=== PATIENT | female | born 1980 | race Caucasian/White ===

== ENCOUNTER 2022-10-25 15:04 | Emergency (ER) | payer OTHER, SELFPAY ==
[2022-10-25 15:12] VITALS: BP 166/126; PULSE 111; RESP 16; TEMP 36.9; O2SAT 100; BMI 27.4
--- NOTE | 2022-10-25 15:21 | XR_ITS ---
[address] [address] Patient Name: JACOB MAE MRN: [id number] date: 1980 Sex: F Assigned Patient Location: ER Current Patient Location: ER Accession/Order Number: [id number] Exam Date: 10/25/2022 15:35 Report Date: 10/25/2022 16:20 At the request of: MARIEL ANTONIO Procedure: XR sacrum coccyx min 2V EXAM: XR sacrum coccyx min 2V HISTORY: fall, sacrum/coccyx pain COMPARISON: None. TECHNIQUE: 3 views of the sacrum and coccyx FINDINGS: There is no acute fracture or dislocation. Mild spondylosis. Pressure: No acute process. Electronically authenticated by: CHRISTOPH OZUNA Date: 10/25/2022 16:20
--- NOTE | 2022-10-25 15:21 | XR_ITS ---
The [address] [address] Patient Name: JACOB MAE MRN: [id number] date: 1980 Sex: F Assigned Patient Location: ER Current Patient Location: ER Accession/Order Number: [id number] Exam Date: 10/25/2022 15:35 Report Date: 10/25/2022 16:15 At the request of: MARIEL ANTONIO Procedure: XR foot LT min 3V EXAM: XR foot LT min 3V HISTORY: left foot injury COMPARISON: None. TECHNIQUE: 3 views of the left foot FINDINGS: No acute fracture or dislocation. There is a small heel spur. The soft tissue is unremarkable. IMPRESSION: No acute process. Electronically authenticated by: CHRISTOPH OZUNA Date: 10/25/2022 16:15
--- NOTE | 2022-10-25 15:22 | ED_ITS ---
HPI - Fall General Chief Complaint: Fall Stated Complaint: FALL FROM ROOF Time Seen by Provider: 10/25/22 15:12 Source: patient Mode of arrival: Wheelchair Limitations: no limitations History of Present Illness HPI Narrative: Yesterday around 8pm, the patient was standing on a ladder, cleaning the gutters of her roof. She felt the ladders start to slide under her and she fell to the wooden deck below. She is uncertain how exactly she landed but did not lose consciousness. She initially felt pain in the tailbone and also had pain in the left foot. She said that despite taking ibuprofen the pain in the left foot has increased and she is having difficulty bearing weight on his left foot. She also admits to some achiness along the scalp, the lateral neck on the right and the lateral right shoulder. She denied any chest pain, abdominal pain, pain in the hips, thighs, knees, lower legs or ankles. Related Data Home Medications Medication Instructions Recorded Confirmed dextroamphetamine-amphetamine 10 10/25/22 mg tablet escitalopram oxalate 10 mg tablet mg 10/25/22 lisinopril 20 tab 10/25/22 mg-hydrochlorothiazide 12.5 mg tablet Previous Rx's Medication Instructions Recorded nabumetone 1,000 mg tablet 1,000 mg PO BID pain #14 tabs 10/25/22 (Relafen DS) Allergies Allergy/AdvReac Type Severity Reaction Status Date / Time No Known Drug Allergies Allergy Verified 10/25/22 15:11 [facility] Social History Smoking status: Never smoker Exam Narrative Exam Narrative: Nurses note and vital signs reviewed and patient is not hypoxic. afebrile General: The patient appears well and in no apparent distress. Patient is resting comfortably on cart. GCS = 15. Skin: Warm, dry, no pallor noted. Head: Normocephalic, atraumatic Neck: Supple, trachea mid-line. Full ROM and no cervical spinal tenderness. Eyes: PERRLA, EOMI ENT: No external facial injury noted, no trismus or drooling Cardiovascular: Regular Rate and Rhythm Respiratory: Patient is in no distress, no accessory muscle use, lungs are clear to auscultation, no wheezing, rales or rhonchi Chest Wall: no tenderness, no flail chest, contusion, abrasion, or signs of trauma. Back: No thoracic or lumbar tenderness to palpation. Coccyx tenderness. Musculoskeletal: tenderness to the left heel and the left mid foot without swelling or deformity. Moves left LE normally at the hip, knee, ankle and toes. Negative exam of the hips and pelvis. Soft tissue tenderness of the right shoulder with normal right shoulder ROM. No right or left scapular tenderness. No additional sign of long bone fracture. Pulses at femoral, DP, PT, and popliteal were 2+ bilaterally. Moves all four extremities in all modalities with 5/5 strength. GI: Normal bowel sounds, no tenderness to palpation, no masses appreciated. No rebound, guarding, or rigidity noted. Neurological: A&O x4, normal equal tire worker strength, normal finger to nose, normal speech, normal coordination, normal motor, normal sensory. Psychiatric: Cooperative Constitutional Vital Signs - 24 hr 10/25/22 15:12 Temperature 98.4 F Pulse Rate [Monitor] 111 H Respiratory Rate 16 Blood Pressure [Left Arm] 166/126 H Pulse Oximetry 100 Oxygen Delivery Method Room Air Course Vital Signs Vital signs: Vital Signs Temperature 98.4 F 10/25/22 15:12 Pulse Rate 111 H 10/25/22 15:12 Respiratory Rate 16 10/25/22 15:12 Blood Pressure 166/126 H 10/25/22 15:12 Pulse Oximetry 100 10/25/22 15:12 Oxygen Delivery Method Room Air 10/25/22 15:12 Temperature 98.4 F 10/25/22 15:12 Pulse Rate 111 H 10/25/22 15:12 Respiratory Rate 16 10/25/22 15:12 Blood Pressure 166/126 H 10/25/22 15:12 Pulse Oximetry 100 10/25/22 15:12 Oxygen Delivery Method Room Air 10/25/22 15:12 MDM - Fall MDM Narrative Medical decision making narrative: Exam findings are detailed above. The patient was sent for x-rays of the coccyx and sacrum as well as x-rays of the left foot. Fortunately no fractures of these areas were identified and the other areas of concern were found on her exam to be soft tissue injuries that should heal quickly. The patient was informed of results and given reassurance with discharge home. ED nurse applied a post op shoe to the patient's left foot. She was referred to podiatry for follow up. She was prescribed Relafen for home use Imaging Data xr left foot: Attestation: I have reviewed the pertinent imaging results. Radiologist's impression: Patient Name: JACOB MAE MRN: [facility]:[id number] date: 1980 Sex: F Assigned Patient Location: ER Current Patient Location: ER Accession/Order Number: [id number] Exam Date: 10/25/2022 15:35 Report Date: 10/25/2022 16:20 At the request of: MARIEL ANTONIO Procedure: XR sacrum coccyx min 2V EXAM: XR sacrum coccyx min 2V HISTORY: fall, sacrum/coccyx pain COMPARISON: None. TECHNIQUE: 3 views of the sacrum and coccyx FINDINGS: There is no acute fracture or dislocation. Mild spondylosis. Pressure: No acute process. Electronically authenticated by: CHRISTOPH OZUNA Date: 10/25/2022 16:20 xr sacrum/coccyx: Attestation: I have reviewed the pertinent imaging results. Radiologist's impression: Patient Name: JACOB MAE MRN: [facility]:[id number] date: 1980 Sex: F Assigned Patient Location: ER Current Patient Location: ER Accession/Order Number: [id number] Exam Date: 10/25/2022 15:35 Report Date: 10/25/2022 16:20 At the request of: MARIEL ANTONIO Procedure: XR sacrum coccyx min 2V EXAM: XR sacrum coccyx min 2V HISTORY: fall, sacrum/coccyx pain COMPARISON: None. TECHNIQUE: 3 views of the sacrum and coccyx FINDINGS: There is no acute fracture or dislocation. Mild spondylosis. Pressure: No acute process. Electronically authenticated by: CHRISTOPH OZUNA Date: 10/25/2022 16:20 Discharge Plan Discharge Chief Complaint: Fall Clinical Impression: Contusion of sacrum, Sprain of foot, left Patient Disposition: Home, Self-Care Time of Disposition Decision: 16:42 Prescriptions / Home Meds: New Relafen DS 1,000 mg tablet 1,000 mg PO BID Qty: 14 0RF No Action lisinopril-hydrochlorothiazide 20-12.5 mg tablet dextroamphetamine-amphetamine 10 mg tablet escitalopram oxalate 10 mg tablet Instructions: Contusion in Adults (ED), Foot Sprain (ED) Stand Alone Forms: Portal Instructions Referrals: Physician,Non-Staff, MD [Primary Care Provider] - 1 week
== END 2022-10-25 17:11 | disposition home or self-care (01) ==
PROVIDERS: Emergency Provider Emergency Medicine
DX: S93.602A Unspecified sprain of left foot, initial encounter (principal); S30.0XXA Contusion of lower back and pelvis, initial encounter; W11.XXXA Fall on and from ladder, initial encounter
CPT/HCPCS: 72220; 73630; 99284

== ENCOUNTER 2023-10-10 13:58 | Outpatient (OUT) | payer OTHER, SELFPAY ==
--- NOTE | 2023-10-10 14:05 | XR_ITS ---
The [address] [address] Patient Name: JACOB MAE MRN: [id number] date: 1980 Sex: F Assigned Patient Location: [facility] Current Patient Location: [facility] Accession/Order Number: [id number] Exam Date: 10/10/2023 14:15 Report Date: 10/11/2023 12:57 At the request of: SENG HOWARD Procedure: XR lumbar spine 6V w bending EXAMINATION: XR lumbar spine 6V w bending HISTORY: Low Back Pain, Left Leg Weakness COMPARISON: No relevant comparison available. FINDINGS: BONES: Mild degenerative facet arthropathy L3-4. No significant spondylosis, scoliosis, fracture, or visible bony lesion. No change in alignment during flexion and extension. DISC SPACES: Slight narrowing L5-S1. PARASPINOUS: Negative. No paraspinous abnormality is seen. OTHER: Negative. XR/XR lumbar spine 6V w bending IMPRESSION: 1. L5-S1 mild disc space narrowing/degenerative changes. 2. Mild degenerative changes of the L3-4 facet joints. Electronically authenticated by: DANIEL ROBLEDO Date: 10/11/2023 12:57
--- NOTE | 2023-10-10 14:05 | XR_ITS ---
The [address] [address] Patient Name: JACOB MAE MRN: [id number] date: 1980 Sex: F Assigned Patient Location: [facility] Current Patient Location: Accession/Order Number: [id number] Exam Date: 10/10/2023 14:15 Report Date: 10/11/2023 12:49 At the request of: SENG HOWARD Procedure: XR thoracic spine 2V EXAMINATION: XR thoracic spine 2V HISTORY: Mid Back Pain COMPARISON: No relevant comparison available. FINDINGS: BONES: Slight left convex curvature of thoracic spine. No spondylosis, fracture, or visible bony lesion. DISC SPACES: No significant disc height narrowing, subluxation, or endplate abnormality. PARASPINOUS: Negative. No paraspinous abnormality is seen. OTHER: Negative. XR/XR thoracic spine 2V IMPRESSION: 1. No appreciable acute abnormality or significant degenerative changes. 2. Minimal levocurvature; positioning versus muscle spasm. Electronically authenticated by: DANIEL ROBLEDO Date: 10/11/2023 12:49
== END 2023-10-10 13:59 | disposition home or self-care (01) ==
DX: M54.50 Low back pain, unspecified (principal); R53.1 Weakness; M54.6 Pain in thoracic spine
CPT/HCPCS: 72070; 72114